=== PATIENT | female | born 1970 | race Caucasian/White ===

== ENCOUNTER 2016-09-15 11:06 | Outpatient (CLI) | payer OTHER ==
--- NOTE | 2016-09-15 11:45 | DIAGNOSTIC IMAGING REPORT ---
PROCEDURE: CT HEAD WITHOUT CONTRAST INDICATION: Fall 4 days ago with left periorbital contusion. TECHNIQUE: Noncontrast axial images with sagittal and coronal reformations. COMPARISON: Head CT 11/13/2010. FINDINGS: Sulci, ventricular system, and brain parenchyma are normal. No evidence of acute intracranial process. Right periorbital soft tissue contusion. No fracture. Visualized mastoids and sinuses are clear. IMPRESSION: 1. No acute intracranial abnormality 2. Right periorbital soft tissue contusion 3. Findings called to Dr. Mckeon's office ([place]) at 11:41 a.m., [place] Standard Time
== END 2016-09-15 23:00 ==
LOC: CT SRH 11:06
DX: S09.90XA Unspecified injury of head, initial encounter (principal)